=== PATIENT | male | born 1990 | race Caucasian/White ===

== ENCOUNTER 2020-04-30 11:09 | Emergency (ER) | payer SELFPAY ==
[~2020-04-30] VITALS: Ht 167.6 cm; Wt 74.8 kg
== END 2020-04-30 13:31 | disposition home or self-care (01) ==
LOC: ER 11:09
DX: S93.402A Sprain of unspecified ligament of left ankle, initial encounter (principal); W11.XXXA Fall on and from ladder, initial encounter; Y92.89 Other specified places as the place of occurrence of the external cause
CPT/HCPCS: 73610; A4663